=== PATIENT | male | born 1955 | race Caucasian/White ===

== ENCOUNTER → 2018-07-29 | Outpatient (CLI) | payer MEDICARE, BC ==
--- NOTE | 2018-07-29 15:44 | REP ---
REASON: Neck pain. PRIORS: None. There is complete anterior fusion C2 through C7 and likely involving the PLL as well. The intervertebral foramina appear ample bilaterally. The neural canal does not appear to be encroached upon. There is limitation of flexion and extension. There is no evidence of an acute fracture. IMPRESSION:Findings suggest ankylosing spondylitis. Correlate clinically. Electronically Signed by Willem Romeo DO 07/29/2018 03:56 P
--- NOTE | 2018-07-29 15:46 | REP ---
REASON: Pain. History of ankylosing spondylitis. There is complete fusion of the sacroiliac joints mid and inferior portions bilaterally. Consistent with the patient's diagnosis of ankylosing spondylitis. There was no evidence of an acute fracture. IMPRESSION: Chronic changes as described above. Electronically Signed by Willem Romeo DO 07/29/2018 03:57 P
--- NOTE | 2018-07-29 15:47 | REP ---
REASON: Back pain. History of anklyosing spondylitis. COMPARISON: None. There is complete fusion of the anterior longitudinal ligament and evidence of complete fusion of the posterior longitudinal ligament throughout the thoracolumbar spine with complete syndesmophyte formation seen at all levels bilaterally. There is no evidence of a fracture. Vertebral body height is within normal limits. There is an exaggerated thoracic kyphosis. IMPRESSION: Findings consistent with anklyosing spondylitis as described above. Electronically Signed by Willem Romeo DO 07/29/2018 03:57 P
== END ==
LOC: M LRY 13:09
PROVIDERS: ATTEND Internal Medicine Rheumatology
DX: M43.22 Fusion of spine, cervical region (principal); M43.25 Fusion of spine, thoracolumbar region; M40.204 Unspecified kyphosis, thoracic region; M45.9 Ankylosing spondylitis of unspecified sites in spine
CPT/HCPCS: 72052; 72072; 72202; 80053; 81374; 85025; 85652; 86140; 86200; 86431; G0463

== ENCOUNTER → 2018-07-29 | Outpatient (REF) | payer MEDICARE, BC ==
[2018-07-29 20:57] LABS: BASO # 0.1 10^3/uL (0.0-0.2); BASO % 1.1 % (0.0-1.0); EOS # 0.3 10^3/uL (0.0-0.50); EOS % 2.8 % (0.0-3.0); HEMOGLOBIN 15.6 g/dl (13.5-17.5); IMMATURE GRANULOCYTE % 0.7 % (0-3.0); LYMPH # 2.7 10^3/uL (1.5-4.5); LYMPH % 28.6 % (24.0-44.0); MEAN CORPUSCULAR HEMOGLOBIN 30.9 pg (27.0-33.0); MEAN CORPUSCULAR HGB CONC 33.2 g/dl (32.0-36.5); MEAN CORPUSCULAR VOLUME 93.1 fl (80.0-96.0); MONO # 0.6 10^3/uL (0.0-0.8); MONO % 6.3 % (0.0-5.0); NEUTROPHILS # 5.8 10^3/uL (1.8-7.7); NEUTROPHILS % 60.5 % (36.0-66.0); PLATELET COUNT, AUTOMATED 287 10^3/uL (150-450); RED BLOOD COUNT 5.05 10^6/uL (4.30-6.10); RED CELL DISTRIBUTION WIDTH 12.2 % (11.5-14.5); WHITE BLOOD COUNT 9.5 10^3/uL (4.0-10.0)
[2018-07-29 21:09] LABS: ALBUMIN 3.8 GM/DL (3.2-5.2); ALBUMIN/GLOBULIN RATIO 1.09 (1.00-1.93); ALKALINE PHOSPHATASE 96 U/L (45-117); ALT/SGPT 28 U/L (12-78); ANION GAP 8 MEQ/L (8-16); AST/SGOT 20 U/L (7-37); BILIRUBIN,TOTAL 0.5 MG/DL (0.2-1.0); BLOOD UREA NITROGEN 12 MG/DL (7-18); CALCIUM LEVEL 9.1 MG/DL (8.8-10.2); CARBON DIOXIDE LEVEL 29 MEQ/L (21-32); CHLORIDE LEVEL 105 MEQ/L (98-107); CREATININE FOR GFR 1.03 MG/DL (0.70-1.30); GLOMERULAR FILTRATION RATE > 60.0 (>49); GLUCOSE, FASTING 108 MG/DL (70-100); POTASSIUM SERUM 3.9 MEQ/L (3.5-5.1); RHEUMATOID FACTOR QUANT < 10.0 IU/ML (<15.0); SODIUM LEVEL 142 MEQ/L (136-145); TOTAL PROTEIN 7.3 GM/DL (6.4-8.2)
[2018-07-29 21:32] LABS: ERYTHROCYTE SEDIMENTATION RATE 36 mm/hr (0-20)
== END ==
LOC: M SFHCPLAZ 13:05
DX: M45.9 Ankylosing spondylitis of unspecified sites in spine (principal)
CPT/HCPCS: 80053